=== PATIENT | male | born 1975 | race Caucasian/White ===

== ENCOUNTER 2016-04-29 11:09 | Observation (INO) | payer SELFPAY ==
[~2016-04-29] VITALS: Ht 177.8 cm; Wt 88.2 kg
[2016-04-29] VITALS (13 sets, daily range): BP systolic 148–209; RESP 18–20; TEMP 98–98.9; Ht 177.8 cm; Wt 88.2 kg
[2016-04-29] MEDS ORDERED: LABETALOL 100 MG/20 ML VIAL ONE (11:52)
[2016-04-29] MEDS ORDERED: SODIUM CHLORIDE 0.9% 1,000 ML ONE (12:05)
[2016-04-29] MEDS ORDERED: METOPROLOL TART 50 MG TAB PO ONE ×2 (12:10→14:05)
[2016-04-29] MEDS ORDERED: SALINE FLUSH 10 ML FLUSH PRN (14:45)
[2016-04-29] MEDS ORDERED: ALU/MAG/SIM 30 ML UDC PO PRN (14:45)
[2016-04-29] MEDS ORDERED: SODIUM CHLORIDE 0.9% 1,000 ML IV SCH (14:45)
[2016-04-29] MEDS ORDERED: ACETAMINOPHEN 325 MG TAB PO PRN (14:45)
[2016-04-29] MEDS ORDERED: ONDANSETRON 4 MG VIAL IV PRN (14:45)
[2016-04-29] MEDS ORDERED: OPTIRAY 350 100 ML VIAL HMH IV ONE (14:45)
[2016-04-29] MEDS ORDERED: MAG HYDROX 30 ML UDC PO PRN (14:45)
[2016-04-29] MEDS ORDERED: MORPHINE 2 MG/ML SYR IV PRN (14:45)
[2016-04-29] MEDS ORDERED: BISACODYL EC 5 MG TAB PO PRN (14:45)
[2016-04-29] MEDS ORDERED: ALPRAZOLAM 0.25 MG TAB PO PRN (14:45)
[2016-04-29] MEDS ORDERED: BISACODYL 10 MG SUPP RECTAL PRN (14:45)
[2016-04-29] MEDS ORDERED: MAGNEVIST 20ML IV ONE (14:45)
[2016-04-29] MEDS: KETOROLAC 15 MG/ML VIAL IV PRN (17:45)
[2016-04-29] MEDS ORDERED: Flu Vaccine Quadrivalent 60 MCG/0.5 ML IM.VACC ONE (18:20)
[2016-04-29] MEDS: amLODIPine 5 MG TAB PO SCH (19:55)
[2016-04-29] MEDS: NIFEdipine XL 30 MG TAB PO SCH (19:55)
[2016-04-29] MEDS: SALINE FLUSH 10 ML FLUSH SCH (19:57)
[2016-04-29] MEDS: METOPROLOL TART 50 MG TAB PO SCH (21:41)
[2016-04-30 03:06] VITALS: BP_SYST 142; RESP 20; TEMP 98.7
[2016-04-30] MEDS ORDERED: SODIUM CHLORIDE 0.9% FLUSH BAG 500 ML IV SCH (06:00)
[2016-04-30] MEDS: SALINE FLUSH 10 ML FLUSH SCH (08:35)
[2016-04-30] MEDS: NIFEdipine XL 30 MG TAB PO SCH (08:36)
[2016-04-30] MEDS: amLODIPine 5 MG TAB PO SCH (08:36)
[2016-04-30] MEDS: METOPROLOL TART 50 MG TAB PO SCH (08:36)
[2016-04-30] MEDS: KETOROLAC 15 MG/ML VIAL IV PRN (08:44)
[2016-04-30 11:20] VITALS: BP_SYST 142; RESP 20; TEMP 98.7
== END 2016-04-30 11:06 | disposition home or self-care (01) ==
LOC: ENRESERVDT → ENRESERVTM → ER 11:09 → EMR 14:44 → ENPENDDIS 14:44 → PCU 16:37
PROVIDERS: ADMIT Internal Medicine; ATTEND Internal Medicine
CPT/HCPCS: 36415; 70450; 70553; 71020; 71260; 72050; 80048; 80053; 81001; 82553; 83880; 84484; 85025; 87040; 93005; 94799; 96360